=== PATIENT | male | born 1995 | race Caucasian/White ===

== ENCOUNTER 2018-07-05 23:42 | Emergency (ER) | payer SELFPAY ==
--- NOTE | 2018-07-06 15:05 | NUR.NOTE ---
Nursing Note:Maia; girlfriend, called stating that the patient lost his work note. There is no copy with the downtime paperwork. I got the contact information from her and will have Dr. Franco write another note tonight during his shift and then fax it to [facility]. Lily Carvalho [facility] Fax [phone] Juwan Malin.
== END 2018-07-06 04:00 ==
LOC: ER 07-06 04:42
PROVIDERS: Emergency Provider Emergency Medicine
DX: J02.9 Acute pharyngitis, unspecified (principal)
CPT/HCPCS: 87880; 99282; 87081

== ENCOUNTER 2018-08-31 20:26 | Emergency (ER) | payer SELFPAY ==
--- NOTE | 2018-08-31 20:31 | DI.RAD_ITS ---
SYMPTOM/DIAGNOSIS: LATERAL ANKLE PAIN RIGHT ANKLE: There is no evidence of a fracture or dislocation.
--- NOTE | 2018-08-31 20:33 | NUR.NOTE ---
pt rolled his ankle at approximately 0800 this morning wile hunting in the [facility]
[2018-08-31 20:34] VITALS: BP 112/78; PULSE 91; RESP 15; TEMP 36.7; O2SAT 99
--- NOTE | 2018-08-31 20:39 | ED.GENADUL_ITS ---
Discharge Plan Disposition Patient Disposition: HOME Condition: Good Discharge Details Chief Complaint: Orthopedic Clinical Impression: Right ankle sprain Primary Care Provider: None,None ED Provider: Brigido Nichole Discharge Instructions Instructions: Ankle Sprain (ED) Additional Instructions: Please take 1000 mg of Tylenol and 800 mg of ibuprofen every 6 hours. Please use your walking boot and crutches as directed. If you notice any worsening of your symptoms, or any new symptoms such as vomiting, diarrhea, fever, chills, shortness of breath, chest pain, numbness, weakness, or fainting , please return immediately to the emergency department for reevaluation. Please follow up with your primary care provider as soon as possible for reassessment and reevaluation. As always, it was a pleasure participating in your medical care today. Stand Alone Forms: Work Release Medical Decision Making This is a pleasant 22-year-old male who presents for right lateral ankle pain after inverting his foot. It occurred roughly 12 hours ago this morning, he has been walking on it since then. He has taken Aleve which is slightly improved the pain in his foot. He does complain of some mild subject jania tingling in the lateral aspect of his foot in the distribution of the superficial peroneal nerve. Symptoms are made worse with movement and palpation of the lateral malleoli, improved slightly by Aleve. Physical exam demonstrates no significant swelling or deformity, however there is mild lateral malleoli swelling. No evidence of significant joint laxity. We will get an x-ray to evaluate for acute fracture, however I feel the patient muscles most likely experienced notable sprain of his ankle. We will give acetaminophen and a Lidoderm patch here for pain control 9:32 PM The x-ray result has returned negative for any acute fracture. The patient's pain is notably improved. We have given him crutches and a walking boot per his request. We discussed the importance of ice, NSAIDs, and close follow-up with his PCP. I have extensively reviewed the treatment plan and discharge instructions with the patient and their family. I have addressed all patient concerns at this time. The patient and family was made aware of what symptoms to monitor for that would warrant a return to the emergency department. Discussed the plan with the patient and family, they demonstrate verbal understanding and agreement with our assessment and plan at this time. COMPARISON: No relevant prior studies available. FINDINGS: Bones/joints: Osseous mineralization is within normal limits. No acute fracture or malalignment. The ankle mortise is intact. Soft tissues: Diffuse soft tissue swelling over the dorsum of the midfoot. IMPRESSION: No acute fracture or malalignment. Soft tissue swelling. Thank you for allowing us to participate in the care of your patient. Dictated and Authenticated by: Brittaney Gonzalez MD [facility] General Date/Time Provider Initiated Documentation: 08/31/18 20:27 . HPI Narrative: This is a pleasant 22-year-old male with no significant past medical history who presents today for evaluation of right ankle pain. Patient states that this morning he was walking when he inverted his ankle and heard a pop and notable pain. Pain is made worse with movement, slightly improved by Aleve. He does admit to slight tingling on the lateral aspect of his foot. He denies any change in temperature, redness, fever chills, knee or rosa pain. He denies any other complaints modifying factors at this time. He denies any previous surgeries. General Stated Complaint: Orthopedic JAZIEL: 4 Review of Systems Review of Systems All systems reviewed & are unremarkable except as noted in HPI and below Exam Narrative Exam Narrative: 1.Const: Well-nourished, Well-developed, appearing stated age 2.Eyes: PERRL, no conjunctival injection, and symmetrical lids. 3.ENT: Atraumatic external nose and ears. Moist MM. Neck: Symmetric, trachea midline, No thyromegaly. 4.CVS: +S1/S2, No murmurs or gallops. Peripheral pulses 2+ and equal in all extremities. Brisk capillary refill in all extremities. 5.RESP: Unlabored respiratory effort. Clear to auscultation bilaterally. No wheezes rales or rhonchi 6.GI: Soft, Nontender/Nondistended, No hepatosplenomegaly. No guarding or rebound. 7.MSK: Normocephalic, Extremities w/o deformity however there is notable tenderness to palpation on the lateral aspect of his right ankle. Pain is notable over the lateral malleolus, as well as the fourth and fifth metatarsal. No cyanosis or clubbing, Normal movement of all extremities. Dorsalis pedis and posterior tibial pulse +2 bilaterally, sensation is intact throughout except for slight subjective decrease in sensation over the lateral border of the foot extending from the fifth toe down back posteriorly towards the heel in the distribution of the superficial peroneal nerve. No evidence of significant ankle laxity. No significant laxity with anterior and posterior drawer. No significant laxity with inversion or eversion. Reduced plantar and dorsiflexion strength secondary to pain. 8.Skin: Warm, Dry. No rashes or lesions. 9.Neuro: electric motor repairer II-XII grossly intact. Sensation grossly intact, no focal neurologic deficits. 10.Psych: (AAO) x3. Appropriate mood and affect Course Vital Signs Temperature 36.7 C 08/31/18 20:34 Pulse 91 H 08/31/18 20:34 Respiratory Rate 15 08/31/18 20:34 Blood Pressure 112/78 08/31/18 20:34 Pulse Oximetry 99 08/31/18 20:34 Temperature 36.7 C 08/31/18 20:34 Temperature Source Skin 08/31/18 20:34 Pulse 91 H 08/31/18 20:34 Respiratory Rate 15 08/31/18 20:34 Blood Pressure 112/78 08/31/18 20:34 Blood Pressure Position Sitting 08/31/18 20:34 Pulse Oximetry 99 08/31/18 20:34 Oxygen Delivery Method Room Air 08/31/18 20:34 Oxygen Flow Rate 0 08/31/18 20:34 Pain Level 9 08/31/18 20:34
[2018-08-31] MEDS: Lidocaine 5% Patch 1 PATCH TP (20:45)
[2018-08-31] MEDS: Acetaminophen 500 MG TAB 1000 MG PO (20:45)
--- NOTE | 2018-08-31 21:27 | DI.VRAD_ITS ---
EXAM: XR Right Ankle Complete, 3 or more Views EXAM DATE/TIME: 08/31/2018 8:35 PM CLINICAL HISTORY: 22 years old, male; Injury or trauma; Injury history: Rolled ankle; Initial encounter; Sprain or strain; Right; Injury date: 08/31/2018; Injury details: PT rolled ankle TECHNIQUE: Imaging protocol: XR Right ankle 3 or more views. COMPARISON: No relevant prior studies available. FINDINGS: Bones/joints: Osseous mineralization is within normal limits. No acute fracture or malalignment. The ankle mortise is intact. Soft tissues: Diffuse soft tissue swelling over the dorsum of the midfoot. IMPRESSION: No acute fracture or malalignment. Soft tissue swelling. Dictated and Authenticated by: Brittaney Gonzalez MD. Ordering:ARIADNA Fofana MD
[2018-08-31 21:47] VITALS: BP 112/78; PULSE 88; RESP 15; TEMP 36.7; O2SAT 99
== END 2018-08-31 21:42 | disposition home or self-care (01) ==
PROVIDERS: Emergency Provider Student in an Organized Health Care Education/Training Program
DX: S92.401A Displaced unspecified fracture of right great toe, initial encounter for closed fracture (principal); X50.9XXA Other and unspecified overexertion or strenuous movements or postures, initial encounter
CPT/HCPCS: 29515; 99283; 73610; 99282; E0114; L4361